=== PATIENT | male | born 2000 | race Caucasian/White ===

== ENCOUNTER 2022-10-01 16:56 | Emergency (ER) | payer OTHER ==
[~2022-10-01] VITALS: Ht 170.2 cm; Wt 74.9 kg
[2022-10-01 17:49] LABS: RSV AMPLIFICATION NEGATIVE (NEGATIVE)
[2022-10-01] MEDS ORDERED: KETOROLAC 60MG 2ML VIAL IM ONE (18:00)
[2022-10-01] MEDS ORDERED: ONDANSETRON 4MG ORAL DISINTEGRATING TAB PO ONE (18:00)
[2022-10-01 18:26] LABS: BASO # 0.1 10^3/uL (0.0-0.2); BASO % 0.4 % (0.0-1.0); EOS % 0.1 % (0.0-3.0); HEMATOCRIT 44.6 % (42.0-52.0); HEMOGLOBIN 15.4 g/dl (13.5-17.5); LYMPH # 0.7 10^3/uL (1.5-5.0); LYMPH % 5.8 % (24.0-44.0); MEAN CORPUSCULAR HEMOGLOBIN 30.3 pg (27.0-33.0); MEAN CORPUSCULAR HGB CONC 34.5 g/dl (32.0-36.5); MEAN CORPUSCULAR VOLUME 87.6 fl (80.0-96.0); MONO # 0.8 10^3/uL (0.0-0.8); MONO % 6.6 % (2.0-8.0); NEUTROPHILS # 10.7 10^3/uL (1.5-8.5); NEUTROPHILS % 86.8 % (36.0-66.0); PLATELET COUNT, AUTOMATED 201 10^3/uL (150-450); RED BLOOD COUNT 5.09 10^6/uL (4.30-6.10); WHITE BLOOD COUNT 12.3 10^3/uL (4.0-10.0)
[2022-10-01 18:50] LABS: BLOOD UREA NITROGEN 18 MG/DL (9-23); CALCIUM LEVEL 8.9 MG/DL (8.5-10.1); CARBON DIOXIDE LEVEL 27 MMOL/L (20-31); CHLORIDE LEVEL 101 MMOL/L (98-107); CREATININE FOR GFR 0.83 MG/DL (0.70-1.30); ERYTHROCYTE SEDIMENTATION RATE 1 mm/hr (0-15); GLOMERULAR FILTRATION RATE > 60.0 (>60); GLUCOSE, FASTING 95 MG/DL (60-100); POTASSIUM SERUM 3.9 MMOL/L (3.5-5.1); SODIUM LEVEL 135 MMOL/L (136-145)
[2022-10-01] MEDS ORDERED: ONDA4TAB6 PO (20:04)
[2022-10-01 20:16] VITALS: BP 138/65
== END 2022-10-01 20:19 | disposition home or self-care (01) ==
LOC: M ED 16:56
DX: R11.2 Nausea with vomiting, unspecified (principal); R19.7 Diarrhea, unspecified; R52 Pain, unspecified
CPT/HCPCS: 36415; 71046; 80048; 83605; 85025; 85652; 86140; 87631; 96372; 99283; J1885

== ENCOUNTER 2022-10-14 21:44 | Emergency (ER) | payer OTHER ==
[~2022-10-14] VITALS: Ht 170.2 cm; Wt 73.9 kg
[~2022-10-14 21:44] MED LIST: ONDA4TAB6 PO
[2022-10-14 21:46] VITALS: BP 121/60
== END 2022-10-15 01:24 | disposition left against medical advice (07) ==
LOC: M ED 21:44
DX: J02.9 Acute pharyngitis, unspecified (principal); Z53.21 Procedure and treatment not carried out due to patient leaving prior to being seen by health care provider

== ENCOUNTER → 2022-12-02 | Outpatient (CLI) | payer OTHER | LOC: M PLALAB 14:09 | PROVIDERS: ATTEND Advanced Practice Midwife | DX: Z31.440 Encounter of male for testing for genetic disease carrier status for procreative management (principal) ==

== ENCOUNTER 2023-01-25 20:09 | Emergency (ER) | payer OTHER ==
[~2023-01-25] VITALS: Ht 170.2 cm; Wt 77.1 kg
[2023-01-25 20:10] VITALS: BP 134/84; TEMP 98.5; O2SAT 98
== END 2023-01-26 01:25 | disposition left against medical advice (07) ==
LOC: M ED 20:09
DX: K62.5 Hemorrhage of anus and rectum (principal); Z53.21 Procedure and treatment not carried out due to patient leaving prior to being seen by health care provider